=== PATIENT | male | born 1985 | race Asian ===

== ENCOUNTER 2018-05-16 04:17 | Emergency (ER) | payer OTHER ==
[~2018-05-16] VITALS: Ht 152.4 cm; Wt 60.0 kg
[2018-05-16] MEDS ORDERED: KETOROLAC 30MG/ML VIAL IV ONE (06:30)
[2018-05-16 07:22] VITALS: BP 127/82
== END 2018-05-16 07:33 | disposition home or self-care (01) ==
LOC: ER 04:17
DX: R07.89 Other chest pain (principal)
CPT/HCPCS: 71045; 93005; 96374; 99284; J1885; Z7610